=== PATIENT | male | born 1965 | race Two or more races ===

== ENCOUNTER 2019-05-11 11:26 | Emergency (ER) | payer MEDICARE, OTHER ==
[~2019-05-11] VITALS: Ht 165.1 cm; Wt 86.2 kg
[2019-05-11] MEDS ORDERED: ACETAMINOPHEN 325 MG TAB PO ONE (13:30)
[2019-05-11 13:49] VITALS: BP 173/93
== END 2019-05-11 14:30 | disposition home or self-care (01) ==
LOC: ER 11:26
DX: S93.402A Sprain of unspecified ligament of left ankle, initial encounter (principal); F17.210 Nicotine dependence, cigarettes, uncomplicated; W19.XXXA Unspecified fall, initial encounter; Y93.89 Activity, other specified; Y99.8 Other external cause status; Y92.89 Other specified places as the place of occurrence of the external cause
CPT/HCPCS: 73562; 73610; 73630